=== PATIENT | female | born 1950 | race African-American/Black ===

== ENCOUNTER 2022-03-25 23:21 | Emergency (ER) | payer BC ==
[~2022-03-25] VITALS: Ht 170.2 cm; Wt 93.0 kg
[2022-03-25 23:24] VITALS: BP 132/73
--- NOTE | 2022-03-25 23:24 | NUR ---
PT BIBA BLS ER BED 11
--- NOTE | 2022-03-25 23:35 | NUR ---
71 Y/O FEMALE BIB by BLS from home. C/O mouth pain x 2 days. Patient reported, possible bite by insect-left neck and facial area, then painful gum, tooth and swollen tongue. Called Health Nurse-recommendation to ER. pt states she has a swollen tongue and blistering gums. redness and swelling noted to left face with left eye closed. left eye cataract complications unrelated to current visit. airway patent, no compromise to airway, no slurred speech, lungs clear, unlabored breathing; skin pink, warm, and dry; a/ox4, gcs-15; no cyanosis. non ambulatory due to ms, completely bed-bound. PMHx: MS and HTN Sx: left eye Cataract Sx
--- NOTE | 2022-03-26 00:56 | NUR ---
rn labor delivery at bedside
[2022-03-26 01:02] LABS: BASOPHILS # (AUTO) 0.1 K/uL (0.00-0.22); BASOPHILS % (AUTO) 0.9 % (0.0-2.0); EOSINOPHILS # (AUTO) 0.2 K/uL (0-0.4); EOSINOPHILS % (AUTO) 2.8 % (0.0-4.0); HEMATOCRIT 30.5 % (36-48); HEMOGLOBIN 10.4 g/dL (12.0-16.0); LYMPHOCYTES # (AUTO) 1.3 K/uL (2.5-16.5); LYMPHOCYTES % (AUTO) 19.4 % (20.5-51.1); MEAN CORPUSCULAR HEMOGLOBIN 30 pg (27-31); MEAN CORPUSCULAR HGB CONC 34 g/dL (33-37); MEAN CORPUSCULAR VOLUME 88.1 fL (80-94); MONOCYTES # (AUTO) 0.5 K/uL (0.8-1.0); MONOCYTES % (AUTO) 7.4 % (1.7-9.3); NEUTROPHILS # (AUTO) 4.6 K/uL (1.8-7.7); NEUTROPHILS % (AUTO) 69.5 % (42.2-75.2); PLATELET COUNT (AUTO) 206 K/uL (140-450); RED BLOOD CELL COUNT(AUTO) 3.46 MIL/uL (4.20-5.40); RED CELL DISTRIBUTION WIDTH 15.2 % (11.6-13.7); WHITE BLOOD COUNT (AUTO) 6.6 K/uL (4.8-10.8)
[2022-03-26 01:14] LABS: ANION GAP 9.6 (8-16); CARBON DIOXIDE 29.8 mmol/L (21-32); CHLORIDE 103 mmol/L (98-107); CREATININE 0.8 mg/dL (0.6-1.3); GLUCOSE 139 mg/dL (74-106); POTASSIUM 3.4 mmol/L (3.5-5.1); SODIUM SERUM 139 mmol/L (136-145); UREA NITROGEN, BLOOD 9 mg/dL (7-18)
--- NOTE | 2022-03-26 01:55 | NUR ---
PT TAKEN TO CT
--- NOTE | 2022-03-26 02:25 | NUR ---
PT RETURNED FROM CT
[2022-03-26 03:31] VITALS: BP 130/63
--- NOTE | 2022-03-26 04:37 | NUR ---
PT RESTING COMFORTABLY IN BED AT THIS TIME
[2022-03-26] MEDS ORDERED: TETRACAINE HCL/PF 0.5% OPTH 4 ML BTL OP ONE (05:00)
[2022-03-26] MEDS ORDERED: TOMOMETER 1 DEV DEV MC ONE (06:26)
--- NOTE | 2022-03-26 06:27 | NUR ---
DR HUITRON AT BEDSIDE ASSESSING PT
[2022-03-26] MEDS ORDERED: IBUP-2213 PO (06:36)
[2022-03-26] MEDS ORDERED: AMOX1TAB8 PO (06:36)
[2022-03-26] MEDS ORDERED: DIPH25TA53 PO (06:36)
[2022-03-26] MEDS ORDERED: PRED20TA5 PO (06:36)
--- NOTE | 2022-03-26 07:20 | NUR ---
PT. DISCHARGED, AWAITING TRANSPORT INFORMATION.
--- NOTE | 2022-03-26 07:41 | NUR ---
transfer of care report given to karla ellis
--- NOTE | 2022-03-26 09:51 | NUR ---
pt fully assisted to [employer] car at this time. discharged with belongings in bag, new diaper and paperwork.
--- NOTE | 2022-03-26 09:52 | NUR ---
Patient discharged with v/s stable. Written and verbal after care instructions given and explained. Patient alert, oriented and verbalized understanding of instructions. Wheel Chair Assisted with to car. All questions addressed prior to discharge. ID band removed. Patient advised to follow up with PMD. Rx of Augmentin given. Patient educated on indication of medication including possible reaction and side effects. Opportunity to ask questions provided and answered.
== END 2022-03-26 07:20 | disposition home or self-care (01) ==
LOC: MED 23:21
DX: K04.7 Periapical abscess without sinus (principal); M54.2 Cervicalgia; I10 Essential (primary) hypertension; Z98.890 Other specified postprocedural states; Z79.899 Other long term (current) drug therapy; Z79.1 Long term (current) use of non-steroidal anti-inflammatories (NSAID); Z79.2 Long term (current) use of antibiotics
CPT/HCPCS: 36415; 70487; 70491; 80048; 85025; 85651; 86140; 99285